=== PATIENT | male | born 1995 | race Caucasian/White ===

== ENCOUNTER 2017-06-17 16:38 | Emergency (ER) | payer BC ==
[2017-06-17 17:15] VITALS: BP 128/74
--- NOTE | 2017-06-17 17:46 | UC ---
Ear Complaint HPI - HPI Summary HPI Summary: decrease hearing in right ear for 1 week no pain - History of Current Complaint Chief Complaint: UCEar Stated Complaint: RIGHT EAR Time Seen by Provider: 06/17/17 17:42 Hx Obtained From: Patient Onset/Duration: Gradual Onset, Lasting Days - 7, Still Present Severity Currently: None Aggravating Factors: Nothing Alleviating Factors: Nothing Associated Signs/Symptoms: Positive: Hearing Loss - Allergies/Home Medications Allergies/Adverse Reactions: Allergies Allergy/AdvReac Type Severity Reaction Status Date / Time No Known Allergies Allergy Verified 06/17/17 17:15 Home Medications: Home Medications Isopropyl Alcohol (Otic) [Swimmers Ear Drops] 95 % RIGHT EAR QID PRN 06/17/17 [ History Confirmed 06/17/17] PMH/Surg Hx/FS Hx/Imm Hx Previously Healthy: Yes - Surgical History Surgical History: Yes Surgery Procedure, Year, and Place: T&A - Family History Known Family History: Positive: Unknown - Social History Occupation: Employed Full-time Lives: With Family Alcohol Use: Weekly Substance Use Type: None Smoking Status (MU): Never Smoked Tobacco Have You Smoked in the Last Year: No Review of Systems Constitutional: Negative Skin: Negative Eyes: Negative ENT: Other - decreased hearing in right ear Respiratory: Negative Cardiovascular: Negative Gastrointestinal: Negative Genitourinary: Negative Motor: Negative Neurovascular: Negative Musculoskeletal: Negative Neurological: Negative Psychological: Negative Is Patient Immunocompromised?: No All Other Systems Reviewed And Are Negative: Yes Physical Exam Triage Information Reviewed: Yes Appearance: Well-Appearing, No Pain Distress, Well-Nourished Vital Signs: Initial Vital Signs Temp 98.4 F 06/17/17 17:09 Pulse 61 06/17/17 17:09 Resp 12 06/17/17 17:09 BP 128/74 06/17/17 17:09 Pulse Ox 100 06/17/17 17:09 Vital Signs Reviewed: Yes Eye Exam: Normal Eyes: Positive: Conjunctiva Clear ENT Exam: Normal ENT: Positive: Normal ENT inspection, Hearing grossly normal, Pharynx normal, Other - cerumen impaction both ears. Negative: Nasal congestion, Nasal drainage , Tonsillar swelling, Tonsillar exudate, Trismus, Muffled voice, Hoarse voice Dental Exam: Normal Neck exam: Normal Neck: Positive: Supple, Nontender, No Lymphadenopathy Respiratory Exam: Normal Respiratory: Positive: Chest non-tender, Lungs clear, Normal breath sounds, No respiratory distress, No accessory muscle use Cardiovascular Exam: Normal Cardiovascular: Positive: RRR, No Murmur, Pulses Normal, Brisk Capillary Refill Musculoskeletal Exam: Normal Musculoskeletal: Positive: Strength Intact, ROM Intact Neurological Exam: Normal Neurological: Positive: Alert, Muscle Tone Normal Psychological Exam: Normal Psychological: Positive: Normal Response To Family Skin Exam: Normal Re-Evaluation - Re-Evaluation First Eval Change: Improved - tm wnl hearing WNL Ear Complaint Course/Dx - Course Course Of Treatment: cerumen removal prn no qtips follow with pcp - Differential Dx/Diagnosis Provider Diagnoses: B/L Cerumen Impaction resolved Discharge - Discharge Plan Condition: Stable Disposition: HOME Patient Education Materials: Cerumen Impaction (ED) Referrals: Sumeet De La Cruz MD [Primary Care Provider] - If Needed
== END 2017-06-17 18:16 | disposition home or self-care (01) ==
LOC: UCCORT 16:38
DX: H61.23 Impacted cerumen, bilateral (principal)
CPT/HCPCS: 99211; G0463

== ENCOUNTER 2017-09-15 13:11 | Emergency (ER) | payer BC ==
[2017-09-15 13:30] VITALS: BP 139/80
--- NOTE | 2017-09-15 14:01 | UC ---
FLU HPI - HPI Summary HPI Summary: 18 female presents to urgent care with complaints of cough, nasal congestion, sore throat, headache, low-grade fever/chills for the past 4-5 days that worsened this morning upon waking up. Patient has not taken medication of ibuprofen this morning. Denies bodyaches vomiting, shortness of breath, trouble breathing, and chest pain. States he did not get a flu shot this year. No known sick contacts. No past medical history. No other complaints - History of Current Complaint Chief Complaint: UCRespiratory Stated Complaint: SORE THROAT Time Seen by Provider: 09/15/17 13:25 Hx Obtained From: Patient Onset/Duration: Sudden Onset, Lasting Days, Still Present Severity Currently: Mild Severity Initially: Mild Pain Intensity: 0 Pain Scale Used: 0-10 Numeric Associated Signs & Symptoms: Positive: F/C, Cough, Sore Throat, Nasal Congestion - Allergy/Home Medications Allergies/Adverse Reactions: Allergies Allergy/AdvReac Type Severity Reaction Status Date / Time No Known Allergies Allergy Verified 09/15/17 13:22 PMH/Surg Hx/FS Hx/Imm Hx - Additional Past Medical History Additional PMH: Denies past medical history no hypertension or diabetes - Surgical History Surgical History: Yes Surgery Procedure, Year, and Place: T&A. REPAIR TORN ACL-07/2016 - Family History Known Family History: Positive: Unknown - Social History Alcohol Use: Weekly Substance Use Type: None Smoking Status (MU): Never Smoked Tobacco Have You Smoked in the Last Year: No - Immunization History Most Recent Influenza Vaccination: did not receive Vaccination Up to Date: Yes Review of Systems Constitutional: Fever - Subjective, low-grade, Chills ENT: Sore Throat, Nasal Discharge Respiratory: Cough Cardiovascular: Negative Gastrointestinal: Negative All Other Systems Reviewed And Are Negative: Yes Physical Exam Triage Information Reviewed: Yes Appearance: Well-Appearing, No Pain Distress, Well-Nourished Vital Signs: Initial Vital Signs Temp 97.9 F 09/15/17 13:23 Pulse 89 09/15/17 13:23 Resp 16 09/15/17 13:23 BP 139/80 09/15/17 13:23 Pulse Ox 98 09/15/17 13:23 Vital Signs Reviewed: Yes Eyes: Positive: Conjunctiva Clear ENT: Positive: Hearing grossly normal, Pharyngeal erythema, Nasal congestion, TMs normal, Tonsillar swelling, Uvula midline. Negative: Tonsillar exudate Dental: Negative: Cervical Lymphadenopathy Neck: Positive: Supple, Nontender, No Lymphadenopathy Respiratory: Positive: Chest non-tender, Lungs clear, Normal breath sounds, No respiratory distress, No accessory muscle use, Other: - bronchial sounds. Negative: Respiratory distress, Decreased breath sounds, Crackles, Rhonchi, Stridor, Wheezing Cardiovascular: Positive: RRR, No Murmur, Pulses Normal Abdomen Description: Positive: Nontender, Soft Bowel Sounds: Positive: Present Musculoskeletal: Positive: Strength Intact, ROM Intact, No Edema Neurological: Positive: Alert, Muscle Tone Normal Skin Exam: Normal Flu Course/Dx - Course Course Of Treatment: Influenza and strep obtained due to complaining of symptoms. Both negative. Appears to suffering from a bronchitis/upper respiratory infection. Recommended [id number] symptomatic measures such as Mucinex, Chloraseptic spray, Flonase. Rest. Fluids, saltwater gargles, Tessalon Perles for cough. Aware worsening signs and symptoms to watch out for. Follow-up with PCP. No other concerns at this time. Normal vital signs and normal physical exam. - Differential Dx/Diagnosis Differential Diagnosis/HQI/PQRI: Bronchitis, Influenza, Pneumonia, Upper Respiratory Infection Provider Diagnoses: bronchitis, URI Discharge - Sign-Out/Discharge Documenting (check all that apply): Discharge - Discharge Plan Condition: Good Disposition: HOME Prescriptions: Benzonatate CAP* [Tessalon 100 MG CAP*] 100 mg PO TID PRN #15 cap PRN Reason: Cough Fluticasone NASAL SPRAY 50MCG* [Flonase NASAL SPRAY 50MCG*] 2 spray BOTH NARES DAILY #1 btl Patient Education Materials: Upper Respiratory Infection (ED), Acute Bronchitis (ED) Referrals: Sumeet De La Cruz MD [Primary Care Provider] - Additional Instructions: Recommend taking Mucinex [id number] for the next week. Chloraseptic [place] sold [id number] for sore throat. Use prescribed Flonase nasal congestion. Salt water gargles. Increase fluid intake and get plenty or rest. Continue ibuprofen as needed for headache and fever. Cough medicine as directed. Follow-up with PCP to ensure improvement in 3 days. Any new or worsening symptoms please seek medical attention promptly. - Billing Disposition and Condition Condition: GOOD Disposition: HOME
== END 2017-09-15 14:29 | disposition home or self-care (01) ==
LOC: UCCORT 13:11
DX: J40 Bronchitis, not specified as acute or chronic (principal); J06.9 Acute upper respiratory infection, unspecified
CPT/HCPCS: 87502; 87651; 99212; G0463

== ENCOUNTER 2017-10-28 13:33 | Emergency (ER) | payer BC ==
[2017-10-28 13:54] VITALS: BP 94/75
--- NOTE | 2017-10-28 13:56 | UC ---
Abdominal Pain Male HPI - HPI Summary HPI Summary: 21 yo male presents with epigastric pain for 3 days. He tells me that he has not pain at rest. When he takes a deep breath he feels the pain. When he is lying on his side he feels the pain. He had bronchitis about 3 weeks ago that resolved with supportive treatment. Pain does not change with eating/drinking or BM. Denies fever, chills, cough, SOB, chest pain, HATCH, n/v/d/c, dysuria, or injury. - History of Current Complaint Chief Complaint: UCAbdominalPain Stated Complaint: UPPER ABD PAIN Time Seen by Provider: 10/28/17 13:55 Hx Obtained From: Patient Severity Initially: Moderate Severity Currently: Moderate Pain Intensity: 6 Pain Scale Used: 0-10 Numeric - Allergies/Home Medications Allergies/Adverse Reactions: Allergies Allergy/AdvReac Type Severity Reaction Status Date / Time No Known Allergies Allergy Verified 10/28/17 13:49 Home Medications: Home Medications NK [No Home Medications Reported] 10/28/17 [History Confirmed 10/28/17] PMH/Surg Hx/FS Hx/Imm Hx - Additional Past Medical History Additional PMH: None Previously Healthy: Yes - Surgical History Surgical History: Yes Surgery Procedure, Year, and Place: T&A. REPAIR TORN ACL-07/2016 - Family History Known Family History: Positive: Unknown - Social History Alcohol Use: Occasionally Substance Use Type: None Smoking Status (MU): Never Smoked Tobacco Have You Smoked in the Last Year: No - Immunization History Most Recent Influenza Vaccination: did not receive Vaccination Up to Date: Yes Review of Systems Constitutional: Negative Skin: Negative Eyes: Negative ENT: Negative Respiratory: Negative Cardiovascular: Negative Gastrointestinal: Other - Epigastric pain Genitourinary: Negative Neurovascular: Negative Musculoskeletal: Negative Neurological: Negative Psychological: Negative All Other Systems Reviewed And Are Negative: Yes Physical Exam - Summary Physical Exam Summary: GENERAL: NAD. WDWN. No pain distress. SKIN: No rashes, sores, ulcers, masses, lesions. HEENT: Head: AT/NC Eyes: EOM intact. Conjunctiva clear without inflammation or discharge. Ears: Hearing grossly normal. TMs intact, no bulging, erythema, or edema. Nose: Nasal mucosa pink and moist. NTTP maxillary and frontal sinus. Throat: Posterior oropharynx without exudates, erythema, or tonsillar enlargement. Uvula midline. NECK: Supple. Nontender. No lymphadenopathy. CHEST: CTAB. No r/r/w. No accessory muscle use. Breathing comfortably and in no distress. CV: Bradycardia with occasional early contraction. Without m/r/g. Pulses intact. Brisk cap refill. ABDOMEN: Soft. NTTP. No distention or guarding. No organomegaly. No CVA tenderness. Bowel sounds present NEURO: Alert. CN II-XII grossly intact. PSYCH: Age appropriate behavior. Triage Information Reviewed: Yes Vital Signs: Initial Vital Signs Temp 97.8 F 10/28/17 13:50 Pulse 56 10/28/17 13:50 Resp 18 10/28/17 13:50 BP 94/75 10/28/17 13:50 Pulse Ox 98 10/28/17 13:50 Diagnostics - EKG Cardiac Rate: Bradycardia Cardiac Rhythm: Junctional: New Ectopy: None ST Segment: Normal Abd Pain Male Course/Dx - Course Course Of Treatment: XR: IMPRESSION: No radiographic evidence of acute cardiopulmonary disease. EKG inverted p waves. rate 56. Short MA interval 100ms. Question junctional rhythm as read by Dr. Lockhart. Given this new finding, there is suspicion for pericarditis vs new junctional rhythm of undetermined etiology. I had a long discussion with the patient and advised that he be further evaluated in the ER. He was agreeable to this plan. Declined ambulance and will go by private car. - Differential Dx/Clinical Impression Provider Diagnoses: Abnormal EKG. Epigastric pain Discharge - Sign-Out/Discharge Documenting (check all that apply): Discharge/Admit/Transfer - Discharge Plan Condition: Stable Disposition: HOME Referrals: Sumeet De La Cruz MD [Primary Care Provider] - Additional Instructions: Please go to the Emergency Room for further evaluation of your abnormal EKG At Urgent care your symptoms are suspicious for pericarditis. Your EKG showed an inverted P wave and short MA interval and rate of 56 - this could indicate a Junctional Rhythm. Given that this is a new finding, it should be further evaluated. - Billing Disposition and Condition Condition: STABLE Disposition: HOME
--- NOTE | 2017-10-28 14:27 | RAD ---
INDICATION: Chest pain COMPARISON: None TECHNIQUE: PA and lateral views of the chest were obtained. FINDINGS: The heart and mediastinum are normal in size and contour. The lungs are grossly clear. There is no evidence of large pleural effusion. Visualized bones are normal for the patient's age. There is no radiographic evidence of free air beneath the diaphragm IMPRESSION: No radiographic evidence of acute cardiopulmonary disease.
== END 2017-10-28 15:13 | disposition home or self-care (01) ==
LOC: UCCORT 13:33
DX: R94.31 Abnormal electrocardiogram [ECG] [EKG] (principal); R10.13 Epigastric pain
CPT/HCPCS: 71046; 93005; 99212; G0463

== ENCOUNTER 2019-01-20 07:44 | Emergency (ER) | payer BC ==
[2019-01-20 07:56] VITALS: BP 127/62
[2019-01-20] MEDS ORDERED: Fluorescein Sodium TOPICAL* 1 MG TEST STRIP OPHTHALMIC ONE (08:15)
[2019-01-20] MEDS ORDERED: Tetracaine 0.5% OPTH.SOL 4 ML* 1 DROP BTL LEFT EYE ONE (08:15)
--- NOTE | 2019-01-20 08:26 | UC ---
Eye Complaint HPI - HPI Summary HPI Summary: 23-year-old male presents with complaints of foreign body sensation, eye redness , and tearing. States symptoms began around 5 PM yesterday. No known injury. Patient is a contact lens wearer but took lenses out after symptoms began. Denies fever, chills, URI symptoms, visual disturbances, photophobia, loss of vision, or purulent drainage. - History of Current Complaint Chief Complaint: UCEye Stated Complaint: LEFT EYE COMPLAINT Time Seen by Provider: 01/20/19 08:15 Hx Obtained From: Patient Pain Intensity: 4 Eyes: 1 - Left eye 2 - Visible corneal white spot under normal light evaluation with fluorsceine uptake under magnification with Wood's lamp - Allergies/Home Medications Allergies/Adverse Reactions: Allergies Allergy/AdvReac Type Severity Reaction Status Date / Time No Known Allergies Allergy Verified 01/20/19 07:56 PMH/Surg Hx/FS Hx/Imm Hx Previously Healthy: Yes - Denies significant PMH - Surgical History Surgical History: Yes Surgery Procedure, Year, and Place: T&A. REPAIR TORN ACL-07/2016 - Family History Known Family History: Positive: Non-Contributory - Social History Occupation: Employed Full-time Lives: Alone Alcohol Use: Occasionally Substance Use Type: None Smoking Status (MU): Never Smoked Tobacco Have You Smoked in the Last Year: No - Immunization History Most Recent Influenza Vaccination: did not receive Vaccination Up to Date: Yes Review of Systems All Other Systems Reviewed And Are Negative: Yes Constitutional: Negative: Fever, Chills Eyes: Positive: Eye Redness, Other - FB sensation, tearing. Negative: Blurred Vision, Diplopia, Photophobia ENT: Negative: Sore Throat, Ear Ache, Nasal Discharge, Sinus Congestion, Sinus Pain/Tenderness Respiratory: Negative: Cough Cardiovascular: Positive: Negative Gastrointestinal: Positive: Negative Genitourinary: Positive: Negative Musculoskeletal: Positive: Negative Neurological: Positive: Negative Is Patient Immunocompromised?: No Physical Exam - Summary Physical Exam Summary: GENERAL APPEARANCE: Well developed, well nourished, alert and cooperative, and appears to be in no acute distress. EYES: Right eye normal. Conjunctiva erythema and tearing of the left eye. PERRL , EOM intact. Vision is grossly intact. Visible corneal white spot under normal light evaluation at the 12:00 position to the left eye (see diagram). Tetracaine and fluorsceine were instilled into the left eye and eye examined under magnification with Wood's lamp. Stain uptake was noted at the same spot as above. No foreign body noted. Eversion of the upper and lower lids were performed as part of the exam. EARS: External auditory canals and tympanic membranes clear, hearing grossly intact. NOSE: No nasal discharge. THROAT: Pharynx normal. No tonsilar inflammation, swelling, exudate, or lesions. Uvula midline. Oral cavity normal. Teeth and gingiva in good general condition. NECK: Neck supple, non-tender without lymphadenopathy. CARDIAC: Normal S1 and S2. No S3, S4 or murmurs. Rhythm is regular. There is no peripheral edema, cyanosis or pallor. Extremities are warm and well perfused. Capillary refill is less than 2 seconds. Peripheral pulses intact. LUNGS: Clear to auscultation without rales, rhonchi, wheezing or diminished breath sounds. ABDOMEN: Positive bowel sounds. Soft, nondistended, nontender. No guarding or rebound. No masses or hepatosplenomegally. MUSKULOSKELETAL: ROM intact to all extremities. No joint erythema or tenderness. Normal muscular development. Normal gait. SKIN: Skin normal color, texture and turgor with no lesions or eruptions. Triage Information Reviewed: Yes Vital Signs: Initial Vital Signs Temp 98.6 F 01/20/19 07:52 Pulse 61 01/20/19 07:52 Resp 16 01/20/19 07:52 BP 127/62 01/20/19 07:52 Pulse Ox 100 01/20/19 07:52 Vital Signs Reviewed: Yes Eye Complaint Course/Dx - Course Course Of Treatment: 23-year-old male presents with complaints of foreign body sensation, eye redness , and tearing. States symptoms began around 5 PM yesterday. No known injury. Patient is a contact lens wearer but took lenses out after symptoms began. Denies fever, chills, URI symptoms, visual disturbances, photophobia, loss of vision, or purulent drainage. Afebrile. Vital signs stable. Patient had conjunctiva erythema and tearing of the left eye. PERRL, EOM intact. Vision is grossly intact. Visible corneal white spot under normal light evaluation at the 12:00 position to the left eye (see diagram). Tetracaine and fluorsceine were instilled into the left eye and eye examined under magnification with Wood's lamp. Stain uptake was noted at the same spot as above. No foreign body noted. Eversion of the upper and lower lids were performed as part of the exam. Based on the exam and history of contact lens wearing suspect that the patient's symptoms are a corneal ulceration. Will treat with ciprofloxacin ophthalmic drops 2 drops into the left eye every 15 minutes for the first 6 hours, then 2 drops into the affected eye every 30 minutes for the remainder of the day. Starting tomorrow the patient is to instill 2 drops into the left eye every hour while awake then for days 3 through 14 instill 2 drops into the affected eye every 4 hours while awake. He is to follow-up with the museum informatics specialist in 2 days especially if symptoms are not improving. Anticipatory guidance and warning symptoms were reviewed with the patient. Verbalized understanding and agrees with plan of care. - Differential Dx/Diagnosis Differential Diagnosis/HQI/PQRI: Conjunctivitis, Corneal Abrasion, Keratitis Provider Diagnosis: Corneal ulcer of left eye Discharge - Sign-Out/Discharge Documenting (check all that apply): Patient Departure All imaging exams completed and their final reports reviewed: No Studies - Discharge Plan Condition: Stable Disposition: HOME Prescriptions: Ciprofloxacin 0.3% OPTH.DAIN* [Cipro 0.3% Opth*] 2 drop LEFT EYE Q4H #1 btl Patient Education Materials: Corneal Ulcer (ED) Referrals: Sumeet De La Cruz MD [Primary Care Provider] - Markos Wheat MD [Medical Doctor] - 2 Days Additional Instructions: Start ciprofloxacin ophthalmic 2 drops into the left eye every 15 minutes for the first 6 hours, then 2 drops into the affected eye every 30 minutes for the remainder of the day. Starting tomorrow instill 2 drops into the left eye every hour while awake. For days 3 through 14 instill 2 drops into the affected eye every 4 hours while awake. Do not wear your contacts until you have completed the treatment. Throw out the old pair and use a new pair once you have completed you treatment. Follow up ophthalmology in 2 days especially if symptoms are not improving. Seek immediate medical attention in the emergency room if you develop fever greater than 100.5 F, have pain or swelling of the eye, visual disturbances, loss of vision, or any worsening of symptoms. - Billing Disposition and Condition Condition: STABLE Disposition: Home - Attestation Statements Provider Attestation: I was available for consult. This patient was seen by the RO. The patient was not presented to , seen by or examined by ny -Dutch Carr MD
== END 2019-01-20 08:48 | disposition home or self-care (01) ==
LOC: UCCORT 07:44
DX: H16.002 Unspecified corneal ulcer, left eye (principal)
CPT/HCPCS: 99212; A9270-GY; G0463